=== PATIENT | female | born 1965 | race Caucasian/White ===

== ENCOUNTER 2022-05-30 08:23 | Inpatient (IN) ==
[2022-05-30] MEDS ORDERED: KETOROLAC 30 MG/1 ML VIAL IV STA (09:17)
[2022-05-30] MEDS ORDERED: LACTATED RINGERS 1,000 ML IV ONE ×2 (09:17→12:30)
[2022-05-30] MEDS ORDERED: ONDANSETRON 4 MG/2 ML VIAL IV STA (09:17)
[2022-05-30] MEDS ORDERED: cefTRIAXone 1,000 MG in SODIUM CHLORIDE 0.9% 100 ML IV STA (09:20)
[2022-05-30 10:31] LABS: Basophils % 0.3 % (0.0-0.8); Eosinophils % 0.2 % (0.00-10.9); Hemoglobin 11.8 GM/DL (12.0-16.0); Immature Granulocytes % 0.6 %; Immature Granulocytes Absolute 0.08 #; Lymphocytes # 0.6 10*3/uL (1.4-4.0); Lymphocytes % 4.4 % (21.3-54.2); Mean Corpuscular HGB Conc 33.7 GM/DL (32-36); Mean Corpuscular Volume 89.7 FL (87-102); Mean Platelet Volume 11.6 FL (9.6-12.0); Monocytes # 0.9 10*3/uL (0.11-0.8); Neutrophils % 87.5 % (38.7-73.9); Red Cell Distribution Width 13.6 % (9.3-17.3); White Blood Count 12.4 T/CUMM (4-12)
[2022-05-30 10:32] LABS: Platelet Count 118 T/CUMM (130-400)
[2022-05-30 10:38] LABS: INR 1.1; PT Patient Result 12.1 SECS (10.1-12.1); Partial Thromboplastin Time 28.9 SECS (23.7-32.9)
[2022-05-30 10:44] LABS: Band Neutrophils 4 % (0-10); Lymphocytes 4 % (20-55); Total Cells Counted 100
[2022-05-30 10:45] LABS: Albumin 2.8 G/DL (3.4-5.0); Bilirubin,Total 1.3 MG/DL (0.20-1.00); Calcium 8.4 MG/DL (8.5-10.1); Osmolality,Calculated 275.8 MOS/KG (273-304); Potassium 3.7 MMOL/L (3.5-5.1); Total Protein 6.2 G/DL (6.4-8.2)
[2022-05-30] MEDS ORDERED: ALBUTEROL 2.5 MG/3 ML NEB RESP TX ONE (10:50)
[2022-05-30] MEDS ORDERED: FAMOTIDINE 20 MG/2 ML VIAL IV ONE (10:50)
[2022-05-30] MEDS ORDERED: ONDANSETRON 4 MG/2 ML VIAL IV ONE (10:52)
[2022-05-30 11:08] LABS: Urine Appearance Cloudy (Clear); Urine Color Brown (Yellow); Urine Specific Gravity >= 1.030 (1.001-1.035); Urine pH 5.5 (4.5-8.0)
[2022-05-30 11:09] LABS: Bilirubin,Urine Moderate mg/dL (Negative); Blood, Urine Large mg/dL (Negative); Glucose,Urine (UA) Negative (Negative); Ketones,Urine Trace mg/dL (Negative); Nitrite,Urine Positive (Negative); Protein,Urine >=300 mg/dL (Negative)
[2022-05-30 11:11] LABS: RBC,Urine 321 /HPF (0-4)
[2022-05-30] MEDS ORDERED: MIDAZOLAM 2 MG/2 ML VIAL ONE (11:25)
[2022-05-30] MEDS ORDERED: fentaNYL 100 MCG/2 ML VIAL ONE (11:25)
[2022-05-30] MEDS ORDERED: LIDOCAINE 2% 5 ML VIAL ONE (12:26)
[2022-05-30] MEDS ORDERED: propofoL 200 MG/20 ML VIAL IV ONE (12:26)
[2022-05-30] MEDS ORDERED: SUCCINYLCHOLINE 200 MG/10 ML VIAL ONE (12:26)
[2022-05-30] MEDS ORDERED: LACTATED RINGERS 0 ML IV ONE (12:30)
[2022-05-30] MEDS ORDERED: ONDANSETRON 4 MG/2 ML VIAL ONE (12:30)
[2022-05-30] MEDS ORDERED: SEVOFLURANE 1 UNIT/15 MINUTE INH ONE (12:30)
[2022-05-30] MEDS ORDERED: PHENYLEPHRINE 10 MG/1 ML VIAL IV ONE (12:34)
[2022-05-30] MEDS ORDERED: SIMETHICONE CHEW 125 MG TABLET PO PRN (12:59)
[2022-05-30] MEDS ORDERED: MAGNESIUM HYDROXIDE SUSP 30 ML UDCUP PO PRN (12:59)
[2022-05-30] MEDS ORDERED: PROMETHAZINE 25 MG/1 ML VIAL IM PRN (12:59)
[2022-05-30] MEDS ORDERED: ONDANSETRON 4 MG/2 ML VIAL IV PRN (12:59)
[2022-05-30] MEDS ORDERED: oxyCODONE/ACETAMINOPHEN 5-325 MG TABLET PO PRN (12:59)
[2022-05-30] MEDS ORDERED: diphenhydrAMINE 50 MG/1 ML VIAL IV PRN (12:59)
[2022-05-30] MEDS: SODIUM CHLORIDE 0.9% 1,000 ML IV SCH (14:20)
[2022-05-30] MEDS: ACETAMINOPHEN 325 MG TABLET PO SCH ×2 (15:15→20:36)
[2022-05-30] MEDS ORDERED: ALBUTEROL 2.5 MG/3 ML NEB RESP TX PRN (16:18)
[2022-05-30] MEDS: GABAPENTIN 300 MG CAPSULE PO SCH ×2 (16:21→20:36)
[2022-05-30] MEDS ORDERED: SODIUM CHLORIDE 0.9% 500 ML IV ONE (18:13)
[2022-05-30] MEDS: traZODone 50 MG TABLET PO SCH (20:35)
[2022-05-30] MEDS: DOCUSATE SODIUM 100 MG CAPSULE PO SCH (20:35)
[2022-05-30] MEDS: SIMVASTATIN 10 MG TABLET PO SCH (20:36)
[2022-05-30] MEDS: TOPIRAMATE 100 MG TABLET PO SCH (20:36)
[2022-05-31] MEDS: ACETAMINOPHEN 325 MG TABLET PO SCH ×4 (01:26→20:27)
[2022-05-31 02:07] LABS: Calcium 7.6 MG/DL (8.5-10.1); Potassium 3.8 MMOL/L (3.5-5.1)
[2022-05-31 02:29] LABS: Risk Ratio 4.1; Thyroid Stimulating Hormone 1.83 uIU/ml (0.358-3.74); VLDL Cholesterol 24.2 MG/DL
[2022-05-31 02:35] LABS: Basophils % 0.4 % (0.0-0.8); Eosinophils # 0.1 10*3/uL (0.0-0.87); Eosinophils % 1.2 % (0.00-10.9); Hematocrit 32.8 VOL% (35.7-47.0); Hemoglobin 10.6 GM/DL (12.0-16.0); Immature Granulocytes % 0.9 %; Immature Granulocytes Absolute 0.07 #; Lymphocytes # 0.5 10*3/uL (1.4-4.0); Lymphocytes % 6.2 % (21.3-54.2); Mean Corpuscular HGB Conc 32.3 GM/DL (32-36); Mean Corpuscular Volume 91.4 FL (87-102); Mean Platelet Volume 11.8 FL (9.6-12.0); Monocytes # 0.5 10*3/uL (0.11-0.8); Monocytes % 6.2 % (1.7-12.7); Neutrophils % 85.1 % (38.7-73.9); Platelet Count 87 T/CUMM (130-400); Red Blood Count 3.59 MC/CUMM (3.8-5.5); Red Cell Distribution Width 13.6 % (9.3-17.3); White Blood Count 7.7 T/CUMM (4-12)
[2022-05-31 03:05] LABS: Eosinophils 1 % (0-10); Lymphocytes 9 % (20-55); Platelet Estimate Decreased; Total Cells Counted 100
[2022-05-31] MEDS: SODIUM CHLORIDE 0.9% 1,000 ML IV SCH ×4 (03:19→18:56)
[2022-05-31] MEDS: LEVOTHYROXINE 50 MCG TABLET PO SCH (05:41)
[2022-05-31] MEDS: PANTOPRAZOLE 40 MG TABLET PO SCH (08:33)
[2022-05-31] MEDS: GABAPENTIN 300 MG CAPSULE PO SCH ×3 (08:33→20:27)
[2022-05-31] MEDS: TOPIRAMATE 100 MG TABLET PO SCH ×2 (08:33→20:27)
[2022-05-31] MEDS: DOCUSATE SODIUM 100 MG CAPSULE PO SCH ×2 (08:33→20:27)
[2022-05-31] MEDS: FUROSEMIDE 40 MG TABLET PO SCH (08:33)
[2022-05-31] MEDS: ASPIRIN EC 81 MG TABLET PO SCH (08:33)
[2022-05-31] MEDS: FLUoxetine 20 MG CAPSULE PO SCH (08:33)
[2022-05-31] MEDS ORDERED: cefTRIAXone 1,000 MG in SODIUM CHLORIDE 0.9% 100 ML IV SCH (10:30)
[2022-05-31] MEDS: cefTRIAXone 2,000 MG in SODIUM CHLORIDE 0.9% 100 ML IV SCH (11:42)
[2022-05-31] MEDS: traZODone 50 MG TABLET PO SCH (20:27)
[2022-05-31] MEDS: SIMVASTATIN 10 MG TABLET PO SCH (20:27)
[2022-05-31] MEDS: MAGNESIUM OXIDE 400 MG TABLET PO SCH (20:47)
[2022-06-01] MEDS: ACETAMINOPHEN 325 MG TABLET PO SCH ×4 (01:00→20:57)
[2022-06-01] MEDS: SODIUM CHLORIDE 0.9% 1,000 ML IV SCH ×3 (03:56→21:00)
[2022-06-01 06:03] LABS: Basophils % 0.3 % (0.0-0.8); Eosinophils # 0.2 10*3/uL (0.0-0.87); Eosinophils % 2.2 % (0.00-10.9); Hematocrit 33.4 VOL% (35.7-47.0); Hemoglobin 10.7 GM/DL (12.0-16.0); Immature Granulocytes % 0.9 %; Immature Granulocytes Absolute 0.07 #; Lymphocytes # 0.6 10*3/uL (1.4-4.0); Mean Platelet Volume 12.2 FL (9.6-12.0); Monocytes # 0.5 10*3/uL (0.11-0.8); Monocytes % 6.3 % (1.7-12.7); Neutrophils % 82.3 % (38.7-73.9); Platelet Count 105 T/CUMM (130-400); Red Blood Count 3.59 MC/CUMM (3.8-5.5); Red Cell Distribution Width 14.1 % (9.3-17.3); White Blood Count 7.6 T/CUMM (4-12)
[2022-06-01 06:20] LABS: Lymphocytes 8 % (20-55); Total Cells Counted 100
[2022-06-01 06:21] LABS: Calcium 7.5 MG/DL (8.5-10.1); Osmolality,Calculated 284.1 MOS/KG (273-304); Potassium 3.7 MMOL/L (3.5-5.1)
[2022-06-01] MEDS: LEVOTHYROXINE 50 MCG TABLET PO SCH (06:31)
[2022-06-01] MEDS: FLUoxetine 20 MG CAPSULE PO SCH (08:46)
[2022-06-01] MEDS: DOCUSATE SODIUM 100 MG CAPSULE PO SCH ×2 (08:46→20:56)
[2022-06-01] MEDS: CALCIUM (CARBONATE)/VITAMIN D 600 MG-400 UNIT TABLET PO SCH (08:46)
[2022-06-01] MEDS: ASPIRIN EC 81 MG TABLET PO SCH (08:46)
[2022-06-01] MEDS: CHOLECALCIFEROL 1,000 UNIT TABLET PO SCH (08:46)
[2022-06-01] MEDS: GABAPENTIN 300 MG CAPSULE PO SCH ×3 (08:47→20:56)
[2022-06-01] MEDS: TOPIRAMATE 100 MG TABLET PO SCH ×2 (08:47→20:58)
[2022-06-01] MEDS: FUROSEMIDE 40 MG TABLET PO SCH (08:47)
[2022-06-01] MEDS: hydrOXYzine HCL 25 MG TABLET PO SCH (08:47)
[2022-06-01] MEDS: MAGNESIUM OXIDE 400 MG TABLET PO SCH ×2 (08:47→20:58)
[2022-06-01] MEDS: PANTOPRAZOLE 40 MG TABLET PO SCH (08:47)
[2022-06-01] MEDS ORDERED: MAGNESIUM SULF RIDER 4 GM/100 ML PREMIX IV ONE (09:50)
[2022-06-01] MEDS: cefTRIAXone 2,000 MG in SODIUM CHLORIDE 0.9% 100 ML IV SCH (14:17)
[2022-06-01] MEDS: traZODone 50 MG TABLET PO SCH (20:56)
[2022-06-01] MEDS: SIMVASTATIN 10 MG TABLET PO SCH (20:57)
[2022-06-02] MEDS: ACETAMINOPHEN 325 MG TABLET PO SCH ×4 (01:04→18:10)
[2022-06-02 05:50] LABS: Basophils % 0.5 % (0.0-0.8); Eosinophils # 0.3 10*3/uL (0.0-0.87); Eosinophils % 5.3 % (0.00-10.9); Hematocrit 32.1 VOL% (35.7-47.0); Hemoglobin 10.4 GM/DL (12.0-16.0); Immature Granulocytes % 0.7 %; Immature Granulocytes Absolute 0.04 #; Lymphocytes # 0.8 10*3/uL (1.4-4.0); Lymphocytes % 13.4 % (21.3-54.2); Mean Corpuscular HGB Conc 32.4 GM/DL (32-36); Mean Platelet Volume 11.8 FL (9.6-12.0); Monocytes # 0.5 10*3/uL (0.11-0.8); Monocytes % 9.5 % (1.7-12.7); Neutrophils % 70.6 % (38.7-73.9); Red Blood Count 3.45 MC/CUMM (3.8-5.5); Red Cell Distribution Width 14.1 % (9.3-17.3); White Blood Count 5.7 T/CUMM (4-12)
[2022-06-02 05:51] LABS: Platelet Count 127 T/CUMM (130-400)
[2022-06-02] MEDS: LEVOTHYROXINE 50 MCG TABLET PO SCH (05:58)
[2022-06-02 06:01] LABS: Calcium 8.1 MG/DL (8.5-10.1); Osmolality,Calculated 280.3 MOS/KG (273-304); Potassium 3.7 MMOL/L (3.5-5.1)
[2022-06-02] MEDS: hydrOXYzine HCL 25 MG TABLET PO SCH (08:51)
[2022-06-02] MEDS: CHOLECALCIFEROL 1,000 UNIT TABLET PO SCH (08:51)
[2022-06-02] MEDS: FUROSEMIDE 40 MG TABLET PO SCH (08:51)
[2022-06-02] MEDS: TOPIRAMATE 100 MG TABLET PO SCH ×2 (08:51→21:09)
[2022-06-02] MEDS: CALCIUM (CARBONATE)/VITAMIN D 600 MG-400 UNIT TABLET PO SCH (08:51)
[2022-06-02] MEDS: DOCUSATE SODIUM 100 MG CAPSULE PO SCH ×2 (08:51→21:09)
[2022-06-02] MEDS: GABAPENTIN 300 MG CAPSULE PO SCH ×3 (08:51→21:09)
[2022-06-02] MEDS: FLUoxetine 20 MG CAPSULE PO SCH (08:51)
[2022-06-02] MEDS: ASPIRIN EC 81 MG TABLET PO SCH (08:51)
[2022-06-02] MEDS: PANTOPRAZOLE 40 MG TABLET PO SCH (08:51)
[2022-06-02] MEDS: MAGNESIUM OXIDE 400 MG TABLET PO SCH ×2 (08:52→21:09)
[2022-06-02] MEDS: cefTRIAXone 2,000 MG in SODIUM CHLORIDE 0.9% 100 ML IV SCH (10:30)
[2022-06-02] MEDS: LEVOFLOXACIN 500 MG TABLET PO SCH (11:05)
[2022-06-02] MEDS: SODIUM CHLORIDE 0.9% 1,000 ML IV SCH (15:51)
[2022-06-02] MEDS: traZODone 50 MG TABLET PO SCH (21:09)
[2022-06-02] MEDS: SIMVASTATIN 10 MG TABLET PO SCH (21:09)
[2022-06-03] MEDS: ACETAMINOPHEN 325 MG TABLET PO SCH ×3 (00:06→13:39)
[2022-06-03] MEDS: LEVOTHYROXINE 50 MCG TABLET PO SCH (06:05)
[2022-06-03] MEDS: FLUoxetine 20 MG CAPSULE PO SCH (09:39)
[2022-06-03] MEDS: DOCUSATE SODIUM 100 MG CAPSULE PO SCH (09:39)
[2022-06-03] MEDS: LEVOFLOXACIN 500 MG TABLET PO SCH (09:39)
[2022-06-03] MEDS: ASPIRIN EC 81 MG TABLET PO SCH (09:40)
[2022-06-03] MEDS: CALCIUM (CARBONATE)/VITAMIN D 600 MG-400 UNIT TABLET PO SCH (09:40)
[2022-06-03] MEDS: GABAPENTIN 300 MG CAPSULE PO SCH (09:40)
[2022-06-03] MEDS: CHOLECALCIFEROL 1,000 UNIT TABLET PO SCH (09:40)
[2022-06-03] MEDS: PANTOPRAZOLE 40 MG TABLET PO SCH (09:40)
[2022-06-03] MEDS: TOPIRAMATE 100 MG TABLET PO SCH (09:40)
[2022-06-03] MEDS: MAGNESIUM OXIDE 400 MG TABLET PO SCH (09:41)
[2022-06-03] MEDS: FUROSEMIDE 40 MG TABLET PO SCH (09:41)
[2022-06-03] MEDS: SODIUM CHLORIDE 0.9% 1,000 ML IV SCH (11:08)
[2022-06-03] MEDS: cefTRIAXone 2,000 MG in SODIUM CHLORIDE 0.9% 100 ML IV SCH (11:10)
[2022-06-03 11:25] VITALS: BP 123/59
[2022-06-06 15:16] LABS: Stone Source Left Ureter
== END 2022-06-03 13:11 | disposition home or self-care (01) | DRG 854 ==
LOC: N.ED 08:23 → N.3E 11:05
PROVIDERS: ADMIT Surgery; ATTEND Surgery